=== PATIENT | male | born 1970 | race Caucasian/White ===

== ENCOUNTER → 2021-03-13 02:19 | Outpatient (CLI) | payer BC, SELFPAY ==
[2021-03-13 18:17] LABS: SARS-CoV-2 RNA PCR Negative
== END ==
PROVIDERS: PCP Internal Medicine; Visit Provider Internal Medicine Gastroenterology
DX: Z01.812 Encounter for preprocedural laboratory examination (principal); Z20.822 Contact with and (suspected) exposure to COVID-19
CPT/HCPCS: C9803; U0003; U0005

== ENCOUNTER 2021-03-16 03:26 | Day surgery (SDC) | payer BC, SELFPAY ==
[2021-03-07 08:33] VITALS: BMI 29.4
--- NOTE | 2021-03-16 08:07 | WPDANESEPPF ---
Anes - Initial Pre Proc Eval Procedure: Operation Date: 03/16/21 09:00 Proposed Procedures p Colonoscopy - Tor Denton MD Date/Time: 03/16/21 08:07 Surgeon: Tor Denton MD Pre Op Diagnosis: family hx colon ca, rectal bleed Patient Data Age: 50 Gender: M Height: 1.78 m Weight: 93 kg Allergies Allergy/AdvReac Type Severity Reaction Status Date / Time No Known Allergies Allergy Verified 03/16/21 08:13 Home Medications Medication Instructions Recorded Confirmed Type diltiazem HCl 360 mg capsule,24 360 mg PO DAILY #90 cap 03/16/21 03/16/21 Rx hr,extended release losartan 100 mg PO DAILY 03/16/21 03/16/21 History Patient hx anesthesia problems: none Family hx anesthesia problems: none PMFSH Past Medical History Medical History Abdominal pain BMI 31.0-31.9,adult Colon cancer screening Edema Elevated LFTs Encounter for long-term current use of medication Encounter for screening laboratory testing for COVID-19 virus Encounter to establish care Essential (primary) hypertension Fall with injury Family history of colon cancer Family history of diabetes mellitus Mixed hyperlipidemia On group home drug therapy Overweight (BMI 25.0-29.9) Prostate cancer screening SVT (supraventricular tachycardia) Family History Family History Father Carcinoma of colon Social History Social History Smoking status: Never smoker Tobacco type: smokeless tobacco Smokeless tobacco user: chewing tobacco Second hand tobacco smoke exposure: No Alcohol intake: former Substance use: never Substance use type: does not use Living arrangements: with family Gender identity (if verbalized by the patient): Male Spiritual care concerns: No Anes - Eval Final PreProcedure Day of Procedure 03/16/21 08:07 Patient weight: overweight Heart: regular rate and rhythm Lungs: clear to auscultation and normal air movement Airway: Mallampati scale class II Neurological: alert and oriented Last oral intake: >/= 8 hours ASA classification: II Emergent: no Anesthetic plan: proceed Anesthesia type and monitoring: general GIVS Informed Consent: The patient's anesthetic plan and its attendant risks and benefits were discussed with the patient/family/POA. Questions were solicited and answers provided to the satisfaction of the patient/family/POA.
[2021-03-16 08:15] VITALS: BP 126/86; PULSE 79; RESP 18; TEMP 36.4; O2SAT 98; BMI 29.2
--- NOTE | 2021-03-16 08:18 | P.HP_ITS ---
History of Present Illness History of Present Illness Consent: Risks, benefits, and alternatives have been discussed and questions answered. Patient agrees to proceed with procedure. Chief complaint: family hx colon ca, rectal bleed Narrative: Rudolph Leon is a 50 year old male referred for colon cancer screening. He has a family history of colon cancer, in his father. Review of Systems Review of Systems: All systems reviewed & are unremarkable except as noted in HPI and below PMFSH Past Medical History Medical History Abdominal pain BMI 31.0-31.9,adult Colon cancer screening Edema Elevated LFTs Encounter for long-term current use of medication Encounter for screening laboratory testing for COVID-19 virus Encounter to establish care Essential (primary) hypertension Fall with injury Family history of colon cancer Family history of diabetes mellitus Mixed hyperlipidemia On jail drug therapy Overweight (BMI 25.0-29.9) Prostate cancer screening SVT (supraventricular tachycardia) Family History Family History Father Carcinoma of colon Social History Social History Smoking status: Never smoker Tobacco type: smokeless tobacco Smokeless tobacco user: chewing tobacco Second hand tobacco smoke exposure: No Alcohol intake: former Substance use: never Substance use type: does not use Living arrangements: with family Gender identity (if verbalized by the patient): Male Spiritual care concerns: No Meds Home Medications and Allergies Home Medications Medication Instructions Recorded Confirmed Type diltiazem HCl 360 mg capsule,24 360 mg PO DAILY #90 cap 03/16/21 03/16/21 Rx hr,extended release losartan 100 mg PO DAILY 03/16/21 03/16/21 History Allergies Allergy/AdvReac Type Severity Reaction Status Date / Time No Known Allergies Allergy Verified 03/16/21 08:13 Vital Signs Vital Signs - 24 hr 03/16/21 08:15 Temperature 36.4 C Pulse Rate 79 Respiratory Rate 18 Blood Pressure 126/86 Pulse Oximetry 98 Exam Resp: Auscultation: clear to auscultation bilaterally Cardio: Rate: regular rate Rhythm: regular rhythm GI: GI Palp: Yes Soft to palpation and No Tenderness to palpation present (GI) Assessment and Plan Assessment and plan (1) Colon cancer screening: Code(s): Z12.11 - Encounter for screening for malignant neoplasm of colon Status: Acute Assessment and Plan: Colonoscopy with possible biopsy or polypectomy or cautery or injection of substances.
[2021-03-16] MEDS: LACTATED RINGERS 1,000 ML 150 ML IV CONT (08:23)
[2021-03-16 09:25] VITALS: BP 86/58; PULSE 63; RESP 18; O2SAT 95
[2021-03-16 09:35] VITALS: BP 102/74; PULSE 66; RESP 17; O2SAT 95
[2021-03-16 09:45] VITALS: BP 112/79; PULSE 63; RESP 22; O2SAT 96
== END 2021-03-16 10:06 | disposition home or self-care (01) ==
PROVIDERS: PCP Internal Medicine; Visit Provider Internal Medicine Gastroenterology
PROC: 0DJD8ZZ Inspection of Lower Intestinal Tract, Via Natural or Artificial Opening Endoscopic (ICD-10-PCS; CPT 45378; principal; 2021-03-16 09:00)
DX: Z12.11 Encounter for screening for malignant neoplasm of colon (principal); D12.5 Benign neoplasm of sigmoid colon; D12.8 Benign neoplasm of rectum; Z80.0 Family history of malignant neoplasm of digestive organs; I10 Essential (primary) hypertension; E78.2 Mixed hyperlipidemia; I47.1 Supraventricular tachycardia; F17.220 Nicotine dependence, chewing tobacco, uncomplicated
CPT/HCPCS: 45385; 45381; 88305; J2001; J2704; J7120

== ENCOUNTER 2021-07-19 07:57 | Outpatient (CLI) | payer BC, SELFPAY ==
--- NOTE | 2021-07-19 08:00 | ECG_ITS ---
Measurements Intervals [place] Rate: 74 P: 64 MS: 147 QRS: 40 QRSD: 94 T: 40 QT: 361 QTc: 402 Interpretive Statements SINUS RHYTHM BASELINE ARTIFACT- I, II, III, AVR, AVL, AVF, V1, V3-V4 NORMAL ECG Electronically Signed On 07-19-2021 8:24:33 CIRCULAR RIPSAW OPERATOR by Larry Angel D.O.
== END 2021-07-19 07:58 | disposition home or self-care (01) ==
LOC: ANHSURGERY 07:59
PROVIDERS: PCP Internal Medicine; Visit Provider Surgery
DX: I10 Essential (primary) hypertension (principal); I47.1 Supraventricular tachycardia
CPT/HCPCS: 93005

== ENCOUNTER 2021-07-20 01:34 | Day surgery (SDC) | payer BC, SELFPAY ==
[2021-07-12 12:20] VITALS: BMI 25.1
--- NOTE | 2021-07-12 12:34 | PC.NURSE ---
Addendum entered by Joann Alexandra RN 07/12/21 12:37: PT INSTRUCTED TO USE HIBICLENS TO SHOWER MORNING OF SURGERY. Original Note: Report to the Outpatient Waiting Room, entrance under the [facility] [place] [facility] located off [facility], at time 6:00 on date 07/20/21. OR Time: 7:30. - You and your visitor will be asked a series of questions to screen for COVID 19 for your protection. - A mask is required within the hospital. - Only one visitor is allowed at this time. Patient visitors will be guided where to wait when not with patient. Preoperative COVID Testing Requirements: No COVID Test needed if: (proof is required; if not received patient will have Rapid Test prior to entry) - Patient has received COVID Vaccine at least 14 days prior to procedure date or - Patient has positive COVID test result within last 90 days of surgery date. COVID Test needed if above criteria is not met If not COVID vaccinated a COVID test must be conducted within 72 hours of surgery and patient is asked to isolate self from time of testing until procedure. You will go to the [facility] for your COVID testing. The [facility] site is located at the corner of [address] [facility]. You will only be called if COVID results are positive and your surgeon may reschedule your elective surgery date. Patients may have clear liquids (water, carbonated beverages, clear teas, apple juice) until 3 hours prior to surgery with a maximum of 20 ounces. - No food from midnight until time of surgery - Infants may have breast milk until 4 hours before surgery, formula 6 hours prior to surgery. - Children will be allowed to drink immediately following surgery. If applicable, please bring a bottle or sippy cup to assist with drinking. Juice, water, soda, and popsicles are readily available. For infants on formula, please bring formula the day of surgery. Pacifiers are allowed. Take the following medications with a SIP of water the morning of surgery: DILTIAZEM Medications to discontinue per physician: N/A Date to take last dose: N/A Please no make-up, nail namibian, hairspray, perfume, deodorant, or body powder the day of surgery. No jewelry (including any body piercings) or valuables the day of surgery, leave them at home. Please take a shower or bath the night before, or the morning of, surgery with an antibacterial soap. Wear comfortable, loose fitting clothing. Children are encouraged to wear pajamas. - Jewelry must be removed prior to entering the operating room. Rings and piercings that are not removed may be cut off. - The hospital will not accept responsibility for valuables. - Please leave all valuables, including medications, at home the day of surgery. If you are going home after surgery, a licensed concrete mixing truck driver must drive you home. - NO public transportation without another adult. - We recommend that an adult stay with you for 24 hours following discharge. - We also recommend that you do not drive, make important decision, drink alcoholic beverages, or take any drugs that were not prescribed by your health care provider for at least 24 hours after your discharge time. For Pediatric surgeries, we recommend two adults accompany the child home (only one inside the building at this time). Follow any additional instructions given to you from your surgeon. Telephone instructions given to FRANTZ MALDONADO and asked if any additional questions and then verbalized understanding. Patient advised to call surgeon office or pre surgery nurse liaison [phone] if any additional questions.
--- NOTE | 2021-07-19 13:41 | P.PNAN_ITS ---
Anes - Initial Pre Proc Eval Procedure: Operation Date: 07/20/21 07:30 Proposed Procedures p Laparoscopic Umbilical Hernia Repair with Mesh - Reji Ni MD Date/Time: 07/19/21 13:41 Surgeon: Reji Ni MD Pre Op Diagnosis: umbilical hernia Patient Data Age: 51 Gender: M Height: 1.78 m Weight: 79.4 kg Allergies Allergy/AdvReac Type Severity Reaction Status Date / Time No Known Allergies Allergy Verified 07/20/21 07:06 Home Medications Medication Instructions Recorded Confirmed Type losartan 100 mg PO DAILY 03/16/21 07/20/21 History diltiazem HCl 180 mg 180 mg PO DAILY #90 cap 07/10/21 07/20/21 Rx capsule,extended release 24 hr Patient hx anesthesia problems: none Family hx anesthesia problems: none Results Review: All pre-operative results and documents have been reviewed as part of the pre-operative evaluation. [facility] Past Medical History Medical History Abdominal pain BMI 31.0-31.9,adult Colon cancer screening Edema Elevated LFTs Encounter for long-term current use of medication Encounter for screening laboratory testing for COVID-19 virus Encounter to establish care Essential (primary) hypertension Fall with injury Family history of colon cancer Family history of diabetes mellitus Mixed hyperlipidemia On terminal computer operator drug therapy Overweight (BMI 25.0-29.9) Prostate cancer screening SVT (supraventricular tachycardia) Umbilical hernia Family History Family History (Updated 07/11/21 @ 09:38 by Minh Huertas MA) Father Carcinoma of colon Mother Hypertension Breast cancer Other Diabetes mellitus Social History Social History Smoking status: Never smoker Tobacco type: smokeless tobacco Smokeless tobacco user: chewing tobacco Second hand tobacco smoke exposure: No Alcohol intake: current Alcohol use details: A COUPLE/MONTH Substance use: never Substance use type: does not use Living arrangements: with family Gender identity (if verbalized by the patient): Male Spiritual care concerns: No Anes - Eval Final PreProcedure Day of Procedure 07/19/21 13:41 Patient weight: normal Heart: regular rate and rhythm Lungs: clear to auscultation Airway: Mallampati scale class II Neurological: alert and oriented Last oral intake: >/= 8 hours ASA classification: II Emergent: no Anesthetic plan: proceed Anesthesia type and monitoring: general ETT and standard monitoring Results Review: All pre-operative results and documents have been reviewed as part of the pre-operative evaluation. Informed Consent: The patient's anesthetic plan and its attendant risks and benefits were discussed with the patient/family/POA. Questions were solicited and answers provided to the satisfaction of the patient/family/POA.
[2021-07-20] VITALS (7 sets, daily range): BP systolic 116–148; BP diastolic 82–100; PULSE 68–95; RESP 14–18; TEMP 36.4–36.6; O2SAT 97–100
[2021-07-20] MEDS: ACETAMINOPHEN 500 MG TABLET 1000 MG PO (06:43)
[2021-07-20] MEDS: LACTATED RINGERS 1,000 ML 30 ML IV CONT ×2 (06:44→09:17)
[2021-07-20] MEDS: KETOROLAC 15 MG/ML VIAL (*BKC) IV PUSH (06:44)
--- NOTE | 2021-07-20 07:18 | WPDHPUPDATE1 ---
History and Physical Update Update Date/Time: 07/20/21 07:18 History and Physical has been reviewed, including an updated exam of the patient. There are NO changes in the patient's condition. Risks, benefits, and alternatives have been discussed and questions answered. Patient agrees to proceed with procedure.
[2021-07-20] MEDS: ceFAZolin 2 GM/D5W 50 ML 2 GM/50 ML BAG IVPB (07:40)
[2021-07-20] MEDS: LIDO 2%/EPINEPHRINE 1:100,000 20 ML VIAL INFILTRATE (08:26)
--- NOTE | 2021-07-20 09:34 | W.PM.PROC2 ---
Procedure Note - Detailed Date of Procedure 07/20/21 Pre-op Diagnosis umbilical hernia Post-op Diagnosis same Procedure Performed Laparoscopic umbilical hernia repair with mesh Surgeon Reji Ni MD [employer] Will ALLEN, [place] office assistant receptionist Anesthesia general Indications Patient had a recent episode of possible incarceration of omentum in his umbilical hernia which is small to moderate in size. Because of this after significant weight loss and a thorough discussion patient would like to have his umbilical hernia repaired and I think it was reasonable. Findings An approximate oval 1.8 cm fascial defect lying underneath the umbilicus. There was some omentum stuck to the upper edge of the fascial defect which was taken down with Bovie cautery. No other specific abnormalities. Description of Procedure DESCRIPTION OF PROCEDURE: The patient was placed in the supine position on the operative table and after induction of adequate general endotracheal anesthesia by Ganesh Anesthesia, the entire abdomen was prepped and draped in usual sterile fashion and the head placed slightly up. An [place] drape was used to prevent contact of the mesh with the skin during this clean case. Following this, local anesthetic was placed and a spot selected about two fingerbreadths below the costal margin on the left and a small incision made after instilling local anesthetic using 2% Xylocaine with epinephrine. Following this, a Veress needle technique using the water drop test was completed. Using 2 towel clips on the skin, I carefully elevated the skin and then passed the Veress needle into the abdomen and we could see that the saline dropped through the Veress needle easily. CO2 gas was connected and the abdomen was insufflated to 14 mm Hg pressure. Following this, the 0 degree 5 mm laparoscope was placed inside a 5 mm trocar, which was carefully twisted into the abdomen without difficulty, seeing a open pneumoperitoneum as we entered. Thus, the trocar was removed, the sleeve confirmed to be nicely within the abdomen, and we carefully inspected the anterior abdomen. Careful inspection of the abdomen revealed no inguinal hernias. A small defect in the umbilicus that was actually difficult to see initially, but after placing a 12 mm port in the left lower quadrant under direct vision with the laparoscope, we could see up into a 18 mm defect that had been measured then with an instrument and then measured with a known cm marker. There was no incarceration of any omentum, but there was some adhesions of the Omentum to the underside of the umbilical defect on the superior edge. These adhesions were taken down with sharp and blunt dissection using scissors and a [place] and Bovie cautery. Any bleeding on the omentum was cauterized. This too was then lay down on overlying the bowel beneath the area that we were working on. There was fat from the urachus coming up into the area which might inhibit the tacks that I was planning to place through the mesh, therefore this was taken down with Bovie cautery. We had a little bleeding from this whichwas nicely cauterized and then moved out of the way. Following this, we carefully planned by measuring the defect. Our mesh, a circular 11 cm piece of Ventralight mesh was chosen, so that we would have 4.5 cm of overlap in all directions over the circular umbilical defect. Following this, the Ventralight Echo hernia system mesh was rolled and this was inserted through the LLQ 12 mm port after rolling it to protect the absorbable covering on the downside of the mesh. I used the suture passer after making a small opening with an 11 blade knife at the lower end of the umbilicus, after placing local anesthetic directly in the center, inferior portion of the umbilicus. The suture passer was used to grasp this centering stitch on the piece of mesh, and this was pulled up, centering it. Then the Echo 2 system sprung open allowing
== END 2021-07-20 10:55 | disposition home or self-care (01) ==
PROVIDERS: PCP Internal Medicine; Visit Provider Surgery
PROC: (CPT 49652; principal; 2021-07-20 07:30)
DX: K42.9 Umbilical hernia without obstruction or gangrene (principal); I10 Essential (primary) hypertension; E78.2 Mixed hyperlipidemia; I47.1 Supraventricular tachycardia; F17.220 Nicotine dependence, chewing tobacco, uncomplicated
CPT/HCPCS: 49652; A9270; J0690; J1885; J2250; J3010; J7030; J7120

== ENCOUNTER 2022-04-03 01:40 | Day surgery (SDC) | payer BC, SELFPAY ==
[2022-03-20 14:38] VITALS: BMI 24.7
--- NOTE | 2022-04-02 16:17 | PM.HPGS ---
History of Present Illness History of Present Illness Consent: Risks, benefits, and alternatives have been discussed and questions answered. Patient agrees to proceed with procedure. Chief complaint: hx of rectal polyps, neoplasm screening Narrative: Rudolph Leon is a 51 year old male Who is undergoing colonoscopy for surveillance. 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 Review of Systems Review of Systems: All systems reviewed & are unremarkable except as noted in HPI and below PMFSH Past Medical History Medical History Abdominal pain BMI 24.0-24.9, adult BMI 31.0-31.9,adult Colon cancer screening Edema Elevated LFTs Encounter for long-term current use of medication Encounter for routine adult health examination without abnormal findings Encounter for screening laboratory testing for COVID-19 virus Encounter to establish care Essential (primary) hypertension Fall with injury Family history of colon cancer Family history of diabetes mellitus Impacted cerumen of right ear Mixed hyperlipidemia On shelter drug therapy Overweight (BMI 25.0-29.9) Prostate cancer screening SVT (supraventricular tachycardia) Umbilical hernia Surgical History Surgical History S/P laparoscopic hernia repair with mesh 07/20/21 S/P vasectomy Family History Family History Father Carcinoma of colon Mother Hypertension Breast cancer Other Diabetes mellitus Social History Social History Smoking status: Never smoker Tobacco type: smokeless tobacco Smokeless tobacco user: chewing tobacco Second hand tobacco smoke exposure: No Alcohol intake: current Alcohol use details: Socially Substance use: never Substance use type: does not use Living arrangements: with family Gender identity (if verbalized by the patient): Male Sexual Orientation (if Verbalized by the Patient): Straight or Heterosexual Spiritual care concerns: No Meds Home Medications and Allergies Home Medications Medication Instructions Recorded Confirmed Type ycqskhom-ztritpbu-yndpy acid 400 1 tablet PO DAILY 10/05/21 04/03/22 History mcg-vit K 20 mcg-lycop 300 mcg tablet (One-A-Day Men's Multivitamin) quercitin + zinc 500 mg BYMOUTH DAILY 10/05/21 04/03/22 History losartan 100 mg tablet See Rx Instructions .Route 03/08/22 04/03/22 Rx .COMPLEX #90 tabs diltiazem HCl 180 mg See Rx Instructions .Route 03/18/22 04/03/22 Rx capsule,extended release 24 hr .COMPLEX #90 caps Allergies Allergy/AdvReac Type Severity Reaction Status Date / Time No Known Allergies Allergy Verified 04/03/22 06:28 Exam Const: General: alert Orientation/consciousness: patient oriented x3 Resp: Auscultation: clear to auscultation bilaterally Cardio: Rate: regular rate Rhythm: regular rhythm GI: GI Palp: Yes Soft to palpation and No Tenderness to palpation present (GI) Neuro: General: patient oriented x3 Assessment and Plan Assessment and plan (1) Colon cancer screening: Code(s): Z12.11 - Encounter for screening for malignant neoplasm of colon Status: Acute Assessment and Plan: Colonoscopy with possible biopsy or polypectomy or cautery or injection of substances. (2) Dysplastic rectal polyp: Code(s): K62.1 - Rectal polyp Status: Acute
[2022-04-03 06:31] VITALS: BP 140/102; PULSE 93; RESP 18; TEMP 36.2; O2SAT 99
[2022-04-03] MEDS: LACTATED RINGERS 1,000 ML 150 ML IV CONT (06:39)
--- NOTE | 2022-04-03 07:22 | WPDANESEPPF ---
Anes - Initial Pre Proc Eval Procedure: Operation Date: 04/03/22 07:30 Proposed Procedures p Screening Colonoscopy - Tor Denton MD Date/Time: 04/03/22 07:22 Surgeon: Tor Denton MD Pre Op Diagnosis: hx of rectal polyps, neoplasm screening Patient Data Age: 51 Gender: M Height: 1.78 m Weight: 76 kg Last Vital Signs Temp 97.1 F L 04/03/22 06:31 Pulse 93 04/03/22 06:31 Resp 18 04/03/22 06:31 BP 140/102 H 04/03/22 06:31 Pulse Ox 99 04/03/22 06:31 O2 Del Method Room Air 04/03/22 06:31 Allergies Allergy/AdvReac Type Severity Reaction Status Date / Time No Known Allergies Allergy Verified 04/03/22 06:28 Home Medications Medication Instructions Recorded Confirmed Type tfjgvoek-ddezynqr-jnywq acid 400 1 tablet PO DAILY 10/05/21 04/03/22 History mcg-vit K 20 mcg-lycop 300 mcg tablet (One-A-Day Men's Multivitamin) quercitin + zinc 500 mg BYMOUTH DAILY 10/05/21 04/03/22 History losartan 100 mg tablet See Rx Instructions .Route 03/08/22 04/03/22 Rx .COMPLEX #90 tabs diltiazem HCl 180 mg See Rx Instructions .Route 03/18/22 04/03/22 Rx capsule,extended release 24 hr .COMPLEX #90 caps Patient hx anesthesia problems: none Family hx anesthesia problems: none Results Review: All pre-operative results and documents have been reviewed as part of the pre-operative evaluation. [facility] Past Medical History Medical History Abdominal pain BMI 24.0-24.9, adult BMI 31.0-31.9,adult Colon cancer screening Edema Elevated LFTs Encounter for long-term current use of medication Encounter for routine adult health examination without abnormal findings Encounter for screening laboratory testing for COVID-19 virus Encounter to establish care Essential (primary) hypertension Fall with injury Family history of colon cancer Family history of diabetes mellitus Impacted cerumen of right ear Mixed hyperlipidemia On intermediate drug therapy Overweight (BMI 25.0-29.9) Prostate cancer screening SVT (supraventricular tachycardia) Umbilical hernia Surgical History Surgical History S/P laparoscopic hernia repair with mesh 07/20/21 S/P vasectomy Family History Family History Father Carcinoma of colon Mother Hypertension Breast cancer Other Diabetes mellitus Social History Social History Smoking status: Never smoker Tobacco type: smokeless tobacco Smokeless tobacco user: chewing tobacco Second hand tobacco smoke exposure: No Alcohol intake: current Alcohol use details: Socially Substance use: never Substance use type: does not use Living arrangements: with family Gender identity (if verbalized by the patient): Male Sexual Orientation (if Verbalized by the Patient): Straight or Heterosexual Spiritual care concerns: No Anes - Eval Final PreProcedure Day of Procedure 04/03/22 07:22 Patient weight: normal Heart: regular rate and rhythm Lungs: clear to auscultation Airway: Mallampati scale class II Neurological: alert and oriented Last oral intake: >/= 8 hours ASA classification: III Emergent: no Anesthetic plan: proceed Anesthesia type and monitoring: general GIVS and standard monitoring Results Review: All pre-operative results and documents have been reviewed as part of the pre-operative evaluation. Informed Consent: The patient's anesthetic plan and its attendant risks and benefits were discussed with the patient/family/POA. Questions were solicited and answers provided to the satisfaction of the patient/family/POA.
[2022-04-03] MEDS: SIMETHICONE ORAL SUSPENSION 20 MG/0.3 ML 30 ML BOTTLE 0.6 ML IRRIGATION (07:33)
[2022-04-03 07:43] VITALS: BP 100/67; PULSE 72; RESP 18; O2SAT 99
[2022-04-03 07:53] VITALS: BP 115/88; PULSE 77; RESP 20; O2SAT 98
[2022-04-03 08:03] VITALS: BP 125/96; PULSE 65; RESP 16; O2SAT 100
== END 2022-04-03 08:13 | disposition home or self-care (01) ==
PROVIDERS: PCP Internal Medicine; Visit Provider Internal Medicine Gastroenterology
PROC: 0DJD8ZZ Inspection of Lower Intestinal Tract, Via Natural or Artificial Opening Endoscopic (ICD-10-PCS; CPT 45378; principal; 2022-04-03 07:30)
DX: Z12.11 Encounter for screening for malignant neoplasm of colon (principal); K63.5 Polyp of colon; I10 Essential (primary) hypertension; Z86.16 Personal history of COVID-19; E78.2 Mixed hyperlipidemia; I47.1 Supraventricular tachycardia; R94.5 Abnormal results of liver function studies; R60.0 Localized edema; F17.210 Nicotine dependence, cigarettes, uncomplicated
CPT/HCPCS: 45385; 88305; J2001; J2704; J7120

== ENCOUNTER 2022-11-17 15:21 | Emergency (ER) | payer BC, SELFPAY ==
[2022-11-17] VITALS (12 sets, daily range): BP systolic 112–151; BP diastolic 80–109; PULSE 80–152; RESP 12–20; TEMP 36.6; O2SAT 94–100
--- NOTE | ~2022-11-17 | XR_ITS ---
EXAMINATION: XR chest 1V portable Exam Date/Time: 11/17/2022 16:00 CDT HISTORY: palpitations. HX HTN Comparison: 01/29/2018. RESULT: Lines, tubes, and devices: None. Lungs and pleura: Clear. Cardiomediastinal silhouette: Stable. Other: No acute osseous or upper abdominal finding. IMPRESSION: No acute cardiopulmonary process. Reviewed, dictated and finalized at location K.
--- NOTE | 2022-11-17 15:25 | ECG_ITS ---
Measurements Intervals [place] Rate: 148 P: OR: 0 QRS: 30 QRSD: 90 T: -29 QT: 278 QTc: 436 Interpretive Statements ATRIAL FIBRILLATION WITH RAPID VENTRICULAR RESPONSE NONSPECIFIC ST & T-WAVE ABNORMALITY ABNORMAL ECG COMPARED TO ECG 07/19/2021 08:13:06 ATRIAL FIBRILLATION NOW PRESENT T-WAVE ABNORMALITY NOW PRESENT Electronically Signed On 11-18-2022 16:50:49 CDT by Jatinder Hawkins M.D.
--- NOTE | 2022-11-17 15:46 | PC.NURSE ---
KIANA from Dr. Mendez for 5mg IV Lopressor
[2022-11-17 15:47] LABS: Basophils Percent Auto 0.7 % (0.2-1.2); Eosinophils Absolute Auto 0.1 K/mm3 (0-0.3); Eosinophils Percent Auto 1.4 % (0-4.4); Hemoglobin 15.7 g/dL (14.0-18.0); Lymphocytes Absolute Auto 1.72 K/mm3 (0.9-3.2); Lymphocytes Percent Auto 39.8 % (18.3-44.2); Mean Corpuscular HGB Conc 34.1 g/dl (32-36); Mean Corpuscular Hemoglobin 33.3 pg (26-34); Mean Corpuscular Volume 97.7 fl (80-100); Mean Platelet Volume 8.7 fl (7.4-10.4); Monocytes Absolute Auto 0.7 K/mm3 (0.1-0.6); Monocytes Percent Auto 15.3 % (2.6-8.5); Neutrophils Absolute Auto 1.9 K/mm3 (1.3-6.7); Neutrophils Percent Auto 42.8 % (45.5-73.1); Platelet Count Result 241 k/mm3 (150-375); Red Blood Count 4.71 M/mm3 (4.6-6.20); Red Cell Distribution Width 11.8 % (11.5-14.5); White Blood Count 4.3 K/mm3 (4.5-10.0)
[2022-11-17] MEDS: METOPROLOL TARTRATE INJ 5 MG/5 ML VIAL (15:48)
[2022-11-17] MEDS: SODIUM CHLORIDE 0.9% IV 1,000 ML 999 ML IV CONT (15:52)
[2022-11-17 15:56] LABS: Alanine Aminotransferase 113 U/L (6-50); Albumin Level 5.7 g/dL (3.5-5.1); Alkaline Phosphatase 71 U/L (38-126); Anion Gap 15 mmol/L (8-16); Aspartate Amino Transferase 84 U/L (17-59); Bilirubin,Total 0.8 mg/dL (0.2-1.3); Blood Urea Nitrogen 16 mg/dL (9-20); Calcium 9.7 mg/dL (8.4-10.2); Carbon Dioxide 25 mmol/L (22-30); Chloride 102 mmol/L (98-107); Estimated CRCL calculation 73 ml/min; Estimated Glomerular Filt Rate > 60; Glucose 131 mg/dL (65-110); Lipase 310 U/L (23-300); Potassium 4.3 mmol/L (3.4-5.0); Sodium 142 mmol/L (137-145)
[2022-11-17 15:57] LABS: INR 0.9; Partial Thromboplastin Time 24.8 SECONDS (22.3-36.8); Prothrombin Time 12.1 Seconds (11.1-14.7)
--- NOTE | 2022-11-17 16:10 | ED.GENADULT ---
HPI - General Adult General Chief complaint: Arrhythmia/Palpitations Stated complaint: arrythmia Time Seen by Provider: 11/17/22 15:43 History of Present Illness HPI narrative: 52-year-old male presented to the emergency department for evaluation of atrial fibrillation with RVR. Patient does have a prior history of SVT and does take 180 mg of p.o. diltiazem daily. Patient states last night he did drink a lot of alcohol last night. Patient also reports he slept and he did not take his p.o. Cardizem until later in the day due to oversleeping. Patient states he does have sensation of the flutter but denies any associated chest pain or shortness of breath with this. Related Data Home Medications Medication Instructions Recorded Confirmed payjaylf-kefutxgu-bjpuy acid 400 1 tablet PO DAILY 10/05/21 06/20/22 mcg-vit K 20 mcg-lycop 300 mcg tablet (One-A-Day Men's Multivitamin) quercitin + zinc 500 mg BYMOUTH DAILY 10/05/21 06/20/22 Allergies Allergy/AdvReac Type Severity Reaction Status Date / Time No Known Allergies Allergy Verified 11/17/22 15:50 Review of Systems Review of Systems: All systems reviewed & are unremarkable except as noted in HPI and below PMFSH Past Medical History Medical History (Updated 11/17/22 @ 19:29 by Floyd Mendez MD) Abdominal pain BMI 24.0-24.9, adult BMI 27.0-27.9,adult BMI 31.0-31.9,adult BRBPR (bright red blood per rectum) Colon cancer screening Edema Elevated LFTs Encounter for long-term current use of medication Encounter for preventive health examination Encounter for routine adult health examination without abnormal findings Encounter for screening laboratory testing for COVID-19 virus Encounter to establish care Essential (primary) hypertension Fall with injury Family history of colon cancer Family history of diabetes mellitus Ganglion cyst of dorsum of left wrist Impacted cerumen of right ear Mixed hyperlipidemia On correction drug therapy Overweight (BMI 25.0-29.9) Prostate cancer screening SVT (supraventricular tachycardia) Umbilical hernia Surgical History Surgical History S/P hernia repair S/P laparoscopic hernia repair with mesh 07/20/21 S/P vasectomy Family History Family History Father Carcinoma of colon Mother Hypertension Breast cancer Other Diabetes mellitus Social History Social History Smoking status: Never smoker Tobacco type: smokeless tobacco Smokeless tobacco user: chewing tobacco Second hand tobacco smoke exposure: No Alcohol intake: current Alcohol use details: Socially Substance use: never Substance use type: does not use Lack of Transportation: No Lack of Food: Never True Current Housing: I Have Housing Concerned About Future Housing: No Difficulty Paying Gas/Electric Bills: No Difficulty Paying for Meds: No Currently Unemployed: No Education: Bachelor's Degree Difficulty w/ Childcare or Family Care: No Living arrangements: with family Occupation/Education: occupation Gender identity (if verbalized by the patient): Male Sexual Orientation (if Verbalized by the Patient): Straight or Heterosexual Spiritual care concerns: No Exam Narrative: APPEARANCE: Well appearing, no pain, no distress, well-nourished. HEAD: normocephalic, atraumatic. EYES: PERRLA/EOMI, conjunctivae clear. NECK: Supple. No adenopathy, no masses. RESPIRATORY: Airway patent, respirations nonlabored. Clear to auscultation bilaterally, no rales, rhonchi, wheezing. CARDIOVASCULAR: A-fib with RVR ABDOMINAL: Soft, nontender, nondistended, normal bowel sounds MUSCULOSKELETAL: Moves all extremities. Strength/ROM intact, No edema, No calf tenderness. NEURO: Alert. Cranial nerves II through XII intact. Grossly intact SKIN: Warm, dry. Normal Color
[2022-11-17 16:25] LABS: Troponin I < 0.012 ng/mL (0.000-0.034)
[2022-11-17] MEDS: dilTIAZem HCl INJ 25 MG/5 ML VIAL 10 MG IV PUSH (17:54)
--- NOTE | 2022-11-17 18:17 | ECG_ITS ---
Measurements Intervals [place] Rate: 91 P: 53 PA: 134 QRS: 31 QRSD: 89 T: 39 QT: 342 QTc: 422 Interpretive Statements SINUS RHYTHM BASELINE ARTIFACT COMPARED TO ECG 11/17/2022 15:29:06 SINUS RHYTHM NOW PRESENT Electronically Signed On 11-18-2022 16:53:03 CDT by Jatinder Hawkins M.D.
[2022-11-17 18:30] LABS: Ethanol 33 mg/dL (<10)
[2022-11-17 18:43] LABS: Troponin I < 0.012 ng/mL (0.000-0.034)
== END 2022-11-17 19:46 | disposition home or self-care (01) ==
PROVIDERS: Emergency Medicine; Emergency Provider Emergency Medicine; PCP Internal Medicine
DX: I48.91 Unspecified atrial fibrillation (principal); I10 Essential (primary) hypertension; E78.2 Mixed hyperlipidemia; Z79.899 Other long term (current) drug therapy
CPT/HCPCS: 36415; 71045; 80053; 80307; 83690; 83735; 84484; 85025; 85610; 85730; 93005; 96361; 96374; 96375; 99284; J7030

== ENCOUNTER 2022-12-30 11:16 | Outpatient (CLI) | payer BC, SELFPAY ==
--- NOTE | 2023-01-02 15:22 | WPDHOLTEREM ---
Holter/Event Monitor Holter/Event Monitor Date of procedure: 12/30/22 Holter/Event Procedure: 48 Hr Holter Monitor Indications: Atrial fibrillation Conclusion: 1. 48 hour holter monitor on 12/30/22. 2. Predominant rhythm is sinus rhythm. HR range 48-108 bpm; average HR 69 bpm. 3. There are 43 premature supraventricular complexes and 1 supraventricular couplet. One atrial tachycardia at 136 bpm lasting 4 beats at 18:37. 4. There is 1 premature ventricular complex. No ventricular tachycardia. 5. No sinoatrial or atrioventricular blocks. No significant pauses greater than 2 seconds. 6. No symptoms available for correlation.
== END 2022-12-30 11:17 | disposition home or self-care (01) ==
PROVIDERS: PCP Internal Medicine; Visit Provider Internal Medicine
DX: I48.91 Unspecified atrial fibrillation (principal)
CPT/HCPCS: 93225; 93226

== ENCOUNTER 2023-01-30 07:32 | Outpatient (CLI) | payer BC, SELFPAY ==
--- NOTE | 2023-01-30 07:37 | ECHO_ITS ---
Patient Info Name: Rudolph Leon Age: 52 years : 1970 Gender: Male Ht: 70 in Wt: 175 lbs BSA: 1.99 m2 HR: 88 bpm BP: 150 / 107 mmHg Technical Quality: Good Exam Date: 01/30/2023 8:01 AM Exam Location: [facility] Patient Status: Outpatient Admit Date: 01/30/2023 Staff Ordering Physician: Keenan Salgado MD Sewer Repairer: Letitia Suárez RDCS Attending Provider: Keenan Salgado MD Referring Physician: Naomi BINGHAM; Exam Type: CA echo doppler color flow Study Info Indications I48.91 - UNSPECIFIED ATRIAL FIBRILLATION Complete two-dimensional, color flow and Doppler transthoracic echocardiogram is performed. Summary 1. Complete two-dimensional, color flow and Doppler transthoracic echocardiogram is performed. 2. Left ventricular chamber dimension is normal. 3. Left ventricular systolic function is hyperdynamic, estimated at >70%. 4. The left ventricular diastolic function is normal. 5. E/e' 7 is not elevated. 6. Global longitudinal strain is abnormal at -14.3%. 7. No pulmonary hypertension, estimated pulmonary arterial systolic pressure is 25 mmHg. 8. There is trace pulmonic regurgitation. Left Ventricle E/e' 7 is not elevated. Global longitudinal strain is abnormal at -14.3%. Left ventricular chamber dimension is normal. Left ventricular systolic function is hyperdynamic, estimated at >70%. The left ventricular diastolic function is normal. Right Ventricle Right ventricular systolic function is normal and with normal TAPSE 2.7 cm. Right ventricular chamber dimension is normal. Left Atria Left atrial chamber dimension is normal. Right Atria Right atrial chamber dimension is normal. Aortic Valve The aortic valve is trileaflet. There is no aortic valve stenosis. There is no aortic valve regurgitation. Pulmonic Valve There is trace pulmonic regurgitation. Mitral Valve There is no mitral valve stenosis. There is no mitral valve regurgitation. Tricuspid Valve There is no tricuspid valve regurgitation. No pulmonary hypertension, estimated pulmonary arterial systolic pressure is 25 mmHg. Pericardium/Pleural There is no pericardial effusion. Inferior Vena Cava Normal inferior vena cava with >50% collapse upon inspiration consistent with normal right atrial pressure, 5 mmHg. Aorta The aortic root size at the sinus of Valsalva is normal. Left Ventricular Outflow Tract Name Value Normal LVOT 2D LVOT Diameter 1.9 cm LVOT Doppler LVOT Peak Gradient 5 mmHg LVOT Mean Gradient 4 mmHg LVOT VTI 25 cm LVOT VTI/AV VTI Ratio 0.9 LVOT Stroke Volume 74 ml LVOT CO 6.3 l/min LVOT CI 3.2 l/min/m2 Pulmonic Valve Name Value Normal RVOT Doppler RVOT Peak Gradient 3 mmHg PV Doppler ------
== END 2023-01-30 07:33 | disposition home or self-care (01) ==
PROVIDERS: PCP Internal Medicine; Visit Provider Internal Medicine
DX: I48.91 Unspecified atrial fibrillation (principal)
CPT/HCPCS: 93306

== ENCOUNTER 2025-05-31 00:48 | Day surgery (SDC) | payer BC, SELFPAY ==
[2025-05-23 11:36] VITALS: BMI 30.1
[2025-05-31 06:52] VITALS: BP 136/92; PULSE 74; RESP 18; TEMP 36.3; O2SAT 99
[2025-05-31] MEDS: LACTATED RINGERS 1,000 ML 150 ML IV CONT (07:03)
--- NOTE | 2025-05-31 07:24 | WPDANESEPPF ---
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 Patient Data Age: 54 Gender: M Height: 1.78 m Weight: 95.4 kg Last Vital Signs Temp 97.3 F L 05/31/25 06:52 Pulse 74 05/31/25 06:52 Resp 18 05/31/25 06:52 BP 136/92 H 05/31/25 06:52 Pulse Ox 99 05/31/25 06:52 O2 Del Method Room Air 05/31/25 06:52 Allergies Allergy/AdvReac Type Severity Reaction Status Date / Time No Known Allergies Allergy Verified 05/31/25 06:51 Home Medications ?Medication ?Instructions ?Recorded ?Confirmed ?Type czooldux-rzlsfvlx-vysbe acid 400 1 tablet PO DAILY 10/05/21 05/23/25 History mcg-vit K 20 mcg-lycop 300 mcg tablet (One-A-Day Men's Multivitamin) diltiazem HCl 180 mg See Rx Instructions .Route BID 01/27/25 05/23/25 Rx capsule,extended release 24 hr #180 caps losartan 100 mg tablet 100 mg PO DAILY #90 tabs 01/27/25 05/23/25 Rx Patient hx anesthesia problems: none Family hx anesthesia problems: none Results Review: All pre-operative results and documents have been reviewed as part of the pre-operative evaluation. [facility] Past Medical History Medical History Pre-diabetes Follow up Weight gain BMI 30.0-30.9,adult A-fib Encounter for preventive health examination Ganglion cyst of dorsum of left wrist BRBPR (bright red blood per rectum) BMI 27.0-27.9,adult Impacted cerumen of right ear Encounter for routine adult health examination without abnormal findings BMI 24.0-24.9, adult Umbilical hernia Overweight (BMI 25.0-29.9) SVT (supraventricular tachycardia) Prostate cancer screening Edema Abdominal pain Elevated LFTs Fall with injury BMI 31.0-31.9,adult Colon cancer screening Encounter to establish care On terminal gauger supervisor drug therapy Family history of diabetes mellitus Encounter for screening laboratory testing for COVID-19 virus Family history of colon cancer Encounter for long-term current use of medication Mixed hyperlipidemia Essential (primary) hypertension Surgical History Surgical History S/P hernia repair S/P vasectomy S/P laparoscopic hernia repair with mesh 07/20/21 Family History Family History Father Carcinoma of colon Mother Hypertension Breast cancer Other Diabetes mellitus Social History Social History Smoking status: Never smoker Tobacco type: smokeless tobacco Smokeless tobacco user: chewing tobacco Second hand tobacco smoke exposure: No Alcohol intake: current Alcohol use details: Socially Substance use: never Substance use type: does not use Lack of Transportation: No Lack of Food: Never True Current Housing: I Have Housing Concerned About Future Housing: No Difficulty Paying Gas/Electric Bills: No Difficulty Paying for Meds: No Currently Unemployed: No Education: Bachelor's Degree Difficulty w/ Childcare or Family Care: No Living arrangements: with family Occupation/Education: occupation Gender identity (if verbalized by the patient): Male Sexual Orientation (if Verbalized by the Patient): Straight or Heterosexual Spiritual care concerns: No Anes - Eval Final PreProcedure Day of Procedure 05/31/25 07:24 Patient weight: obese Lungs: normal air movement Airway: Mallampati scale class II and special considerations (Upper teeth grinded down, none loose. ) Neurological: alert and oriented Last oral intake: >/= 8 hours ASA classification: II Emergent: no Anesthetic plan: proceed Anesthesia type and monitoring: general GIVS and standard monitoring Results Review: All pre-operative results and documents have been reviewed as part of the pre-operative evaluation. HTN, hx of afib/SVT episodes approx 2022, one time and limited on its own. Pt active w recent hiking in [place], no cp or sob. Informed Consent: The patient's anesthetic plan and its attendant risks and benefits were discussed with the patient/family/POA. Questions were solicited and answers provided to the satisfaction of the patient/family/POA.
--- NOTE | 2025-05-31 07:57 | PM.HPGS ---
History of Present Illness History of Present Illness Consent: Risks, benefits, and alternatives have been discussed and questions answered. Patient agrees to proceed with procedure. Chief complaint: colon polyp Narrative: Rudolph Leon is a 54 year old male with colon polyp in 2021 Review of Systems Review of Systems: All systems reviewed & are unremarkable except as noted in HPI and below PMFSH Past Medical History Medical History (Updated 05/31/25 @ 07:57 by Lebron Rodriguez MD) Adenomatous colon polyp Pre-diabetes Follow up Weight gain BMI 30.0-30.9,adult A-fib Encounter for preventive health examination Ganglion cyst of dorsum of left wrist BRBPR (bright red blood per rectum) BMI 27.0-27.9,adult Impacted cerumen of right ear Encounter for routine adult health examination without abnormal findings BMI 24.0-24.9, adult Umbilical hernia Overweight (BMI 25.0-29.9) SVT (supraventricular tachycardia) Prostate cancer screening Edema Abdominal pain Elevated LFTs Fall with injury BMI 31.0-31.9,adult Colon cancer screening Encounter to establish care [facility] drug therapy Family history of diabetes mellitus Encounter for screening laboratory testing for COVID-19 virus Family history of colon cancer Encounter for long-term current use of medication Mixed hyperlipidemia Essential (primary) hypertension Surgical History Surgical History S/P hernia repair S/P vasectomy S/P laparoscopic hernia repair with mesh 07/20/21 Family History Family History Father Carcinoma of colon Mother Hypertension Breast cancer Other Diabetes mellitus Social History Social History Smoking status: Never smoker Tobacco type: smokeless tobacco Smokeless tobacco user: chewing tobacco Second hand tobacco smoke exposure: No Alcohol intake: current Alcohol use details: Socially Substance use: never Substance use type: does not use Lack of Transportation: No Lack of Food: Never True Current Housing: I Have Housing Concerned About Future Housing: No Difficulty Paying Gas/Electric Bills: No Difficulty Paying for Meds: No Currently Unemployed: No Education: Bachelor's Degree Difficulty w/ Childcare or Family Care: No Living arrangements: with family Occupation/Education: occupation Gender identity (if verbalized by the patient): Male Sexual Orientation (if Verbalized by the Patient): Straight or Heterosexual Spiritual care concerns: No Meds Home Medications and Allergies Home Medications ?Medication ?Instructions ?Recorded ?Confirmed ?Type mimjbnao-ybpcrusv-azjbw acid 400 1 tablet PO DAILY 10/05/21 05/23/25 History mcg-vit K 20 mcg-lycop 300 mcg tablet (One-A-Day Men's Multivitamin) diltiazem HCl 180 mg See Rx Instructions .Route BID 01/27/25 05/23/25 Rx capsule,extended release 24 hr #180 caps losartan 100 mg tablet 100 mg PO DAILY #90 tabs 01/27/25 05/23/25 Rx Allergies Allergy/AdvReac Type Severity Reaction Status Date / Time No Known Allergies Allergy Verified 05/31/25 06:51 Vital Signs Vital Signs - 24 hr 05/31/25 06:52 Temperature 97.3 F L Pulse Rate 74 Respiratory Rate 18 Blood Pressure 136/92 H Pulse Oximetry 99 Oxygen Delivery Room Air Exam Const: General: comfortable and no acute distress HENMT: Face/Nose/Sinus: Normal nares present Eyes: General: appearance normal, both eyes and all related structures Neck: Neck: no JVD Resp: Auscultation: clear to auscultation bilaterally Cardio: Rate: regular rate Rhythm: regular rhythm GI: Inspection: non-distended GI Palp: Yes Soft to palpation Skin: General skin exam: normal color Extrem: General: normal to inspection Psych: Mental Status: mental status grossly normal Assessment and Plan Assessment and plan (1) Adenomatous colon polyp: Code(s): D12.6 - Benign neoplasm of colon, unspecified Status: Acute Assessment and Plan: colonoscopy
--- NOTE | 2025-05-31 08:11 | S_PTH ---
PATIENT: Rudolph Leon LOC: [facility] Alvarez#:[id number] AGE/SX: 54/M ROOM: RE05/31/[address]: Lebron Rodriguez MD : 1970 BED: DIS: 05/31/2025 SPEC #: [id number] RECD: 05/31/25 08:39 STATUS: KENNETH REGaurang #: [id number] MIRIAN: 05/31/25 08:[address]: Lebron Rodriguez DEPT: [facility] Surgical RECD BY: Mekhi Tran ENTERED: 05/31/25 08:40 SP TYPE: Surgical OTHR DR: Keenan Salgado MD Tissues: A - Colon Polypectomy Procedures: Hematoxylin and Eosin Stain Gross and Microscopic Level 4
--- NOTE | 2025-05-31 08:15 | SUR.OPER ---
Transverse Colon Polyp not retrieved. Dr. Dsouza aware.
[2025-05-31 08:16] VITALS: BP 100/68; PULSE 68; RESP 20; O2SAT 98
[2025-05-31 08:26] VITALS: BP 94/51; PULSE 67; RESP 22; O2SAT 99
[2025-05-31 08:36] VITALS: BP 114/79; PULSE 59; RESP 24; O2SAT 100
== END 2025-05-31 08:47 | disposition home or self-care (01) ==
PROVIDERS: PCP Internal Medicine; Referring Provider Internal Medicine; Visit Provider Internal Medicine Gastroenterology
PROC: 0DJD8ZZ Inspection of Lower Intestinal Tract, Via Natural or Artificial Opening Endoscopic (ICD-10-PCS; CPT 45378; principal; 2025-05-31 08:00)
DX: Z12.11 Encounter for screening for malignant neoplasm of colon (principal); D12.2 Benign neoplasm of ascending colon; R73.03 Prediabetes; E78.2 Mixed hyperlipidemia; I10 Essential (primary) hypertension; I48.91 Unspecified atrial fibrillation; I47.10 Supraventricular tachycardia, unspecified; F17.220 Nicotine dependence, chewing tobacco, uncomplicated; E66.9 Obesity, unspecified; Z68.30 Body mass index [BMI] 30.0-30.9, adult; Z79.899 Other long term (current) drug therapy; Z98.890 Other specified postprocedural states; Z87.19 Personal history of other diseases of the digestive system; Z80.0 Family history of malignant neoplasm of digestive organs; Z80.3 Family history of malignant neoplasm of breast
CPT/HCPCS: 45385; 88305; J2003; J2704; J7120